=== PATIENT | male | born 1940 | race Caucasian/White ===

== ENCOUNTER → 2017-07-07 | Outpatient (CLI) | payer OTHER ==
--- NOTE | 2017-07-07 15:52 | RADRPT ---
EXAM DATE/TIME: 07/07/2017 12:28 [place] COMPARISON: No previous studies available for comparison. INDICATIONS : Tremors. DOSE: 4.6 mCi Ioflupane Iodine-123 in 2.5 ml total volume MEDICATION(S): 130 mg Potasium Iodine PO one hour prior to injection SPECT IMAGIN.5 Hrs. RADIATION DOSE: 30.27 CTDIvol (mGy) MEDICAL HISTORY : Atrial fibrillation. SURGICAL HISTORY : Lumbar spine. ENCOUNTER: Initial ACUITY: 1 day PAIN SCALE: 0/10 LOCATION: cranial TECHNIQUE: SPECT imaging of the brain was performed in sagittal, axial and coronal planes. Attenuation correctio n was performed with computed tomography and both the attenuation correction and non-attenuation sharon ected data sets were reviewed. FINDINGS: The pattern of distribution is abnormal with less intensity on the right side as well as loss of the normal posterior crescent on the right. CONCLUSION: Abnormal dopamine transporter scan Cam Mcgraw MD on July 07, 2017 at 15:43 Board Certified Radiologist. This report was verified electronically.
== END ==
LOC: HRAD 08:34
DX: G20 Parkinson's disease (principal)
CPT/HCPCS: 78607; A9584